=== PATIENT | female | born 1955 | race Caucasian/White ===

== ENCOUNTER 2025-02-02 14:24 | Outpatient (CLI) | payer OTHER | END 2025-02-05 07:40 | disposition home or self-care (01) | LOC: MRI 14:24 | DX: M25.511 Pain in right shoulder (principal) | CPT/HCPCS: 73221 ==

== ENCOUNTER 2025-03-26 10:56 | Outpatient (CLI) | payer OTHER | END 2025-03-26 11:02 | disposition home or self-care (01) | LOC: MAMO-SONO 10:56 | PROVIDERS: ATTEND Internal Medicine | DX: N64.4 Mastodynia (principal); Z12.31 Encounter for screening mammogram for malignant neoplasm of breast ==